=== PATIENT | male | born 1945 | race Caucasian/White ===

== ENCOUNTER → 2018-07-27 | Outpatient (CLI) | payer MEDICARE ==
--- NOTE | 2018-07-27 08:35 | US ---
EXAMINATION TYPE: US duplex aorta DATE OF EXAM: 07/27/2018 COMPARISON: NONE CLINICAL HISTORY: 72-year-old male Z13.6 Screening For AAA. TECHNIQUE: Multiple sonographic images of the abdominal aorta are obtained. FINDINGS: EXAM MEASUREMENTS: Abdominal Aorta: Proximal: 2.8 x 2.2 cm Mid: 2.2 x 1.9 cm Distal: 1.8 x 1.8 cm Bifurcation: 1.1 cm 1.1 Prostatic calcifications are present, especially distally. IMPRESSION: 1. Ectatic upper abdominal aorta at 2.8 cm. 2. No evidence for AAA.
== END | disposition home or self-care (01) ==
LOC: RADUSWWP 07:56
PROVIDERS: ATTEND Family Medicine
DX: Z13.6 Encounter for screening for cardiovascular disorders (principal); I77.811 Abdominal aortic ectasia
CPT/HCPCS: 93979

== ENCOUNTER → 2018-09-01 | Outpatient (CLI) | payer MEDICARE ==
--- NOTE | 2018-09-01 11:17 | US ---
EXAMINATION TYPE: US abdomen limited DATE OF EXAM: 09/01/2018 COMPARISON: NONE CLINICAL HISTORY: K85.90 Pancreatitis. EXAM MEASUREMENTS: Liver Length: 10.4 cm Gallbladder Wall: 0.2 cm CBD: 0.2 cm Right Kidney: 10.7 x 4.4 x 5.6 cm Pancreas: Tail obscured by overlying bowel gas, possible mild heterogeneity and echotexture Liver: wnl Gallbladder: wnl Evidence for sonographic Benedict's sign: no CBD: wnl Right Kidney: wnl IMPRESSION: No discrete mass. Mild heterogeneity and echotexture within the pancreas could be compati ble with pancreatitis. Limited exam.
== END | disposition home or self-care (01) ==
LOC: RADUSWWP 06:55
PROVIDERS: ATTEND Family Medicine
DX: R93.5 Abnormal findings on diagnostic imaging of other abdominal regions, including retroperitoneum (principal)
CPT/HCPCS: 76705